=== PATIENT | male | born 1990 | race American Indian/Alaskan Native ===

== ENCOUNTER 2017-08-07 10:44 | Inpatient (IN) | payer MEDICARE ==
[2017-08-07] MEDS ORDERED: NACL 0.9% 1000 ML 1,000 ML IV ONE (11:05)
[2017-08-07 11:15] LABS: Basophils % (Auto) 0.3 % (0.0-1.8); Eosinophils % (Auto) 0.6 % (0.0-4.3); Hemoglobin 16.6 gm/dl (11.8-15.2); Mean Corpuscular HGB Conc 35 % (32-34); Mean Corpuscular Hemoglobin 31 pg (28-32); Mean Corpuscular Volume 90 fl (84-94); Platelet Count 117 K/mm3 (140-440); Red Blood Count 5.36 M/mm3 (3.65-5.03); Red Cell Distribution Width 13.2 % (13.2-15.2)
[2017-08-07 11:30] LABS: Anion Gap 17 mmol/L; BUN/Creatinine Ratio 10; Blood Urea Nitrogen 6 mg/dL (9-20); Calcium 8.9 mg/dL (8.4-10.2); Carbon Dioxide 28 mmol/L (22-30); Chloride 99.2 mmol/L (98-107); Glucose 91 mg/dL (75-100); Potassium 3.7 mmol/L (3.6-5.0); Sodium 140 mmol/L (137-145)
--- NOTE | 2017-08-07 11:30 | XRay Report ---
AP CHEST : 08/07/17 10:44:00 CLINICAL: Hypertension. FINDINGS: Normal heart and pulmonary vessels. The lungs are normally expanded and clear. The bones and soft tissues are unremarkable. IMPRESSION: Normal chest.
[2017-08-07 11:38] LABS: INR 1.07 (0.87-1.13)
[2017-08-07 11:39] LABS: Partial Thromboplastin Time 30.2 Sec. (24.2-36.6)
[2017-08-07] MEDS ORDERED: ROCEPHIN/NS 1 GM/50 ML 1 GM/50 ML BAG IV ONE (11:45)
[2017-08-07 11:50] LABS: Creatine Kinase MB 20.2 ng/mL (0.0-4.0)
[2017-08-07 11:51] LABS: Urine Drugs of Abuse Note Disclamer
[2017-08-07 11:52] LABS: Alanine Aminotransferase 13 units/L (7-56); Albumin 4.1 g/dL (3.9-5); Albumin/Globulin Ratio 1.4 %; Alkaline Phosphatase 57 units/L (35-129); Creatine Kinase 414 units/L (55-170); Lipase 17 units/L (13-60); Total Protein 7.1 g/dL (6.3-8.2)
[2017-08-07 11:56] LABS: Bilirubin,Direct < 0.2 mg/dL (0-0.2)
[2017-08-07 12:03] LABS: Bilirubin,Urine NEG (Negative); Blood,Urine NEG (Negative); Ketones,Urine NEG (Negative); Leukocyte Esterase,Urine NEG (Negative); Mucus,Urine 1+ /HPF; Nitrite,Urine NEG (Negative); Protein,Urine <15 mg/dL mg/dL (Negative)
[2017-08-07] MEDS ORDERED: cefTRIAXone 1 GM in NACL 0.9% 20 ML IV ONE (12:15)
[2017-08-07] MEDS ORDERED: ZOFRAN IV PRN (12:40)
[2017-08-07] MEDS ORDERED: MILK OF MAGNESIA PO PRN (12:40)
[2017-08-07] MEDS ORDERED: TYLENOL PO PRN (12:40)
[2017-08-07] MEDS ORDERED: DULCOLAX PR PRN (12:40)
--- NOTE | 2017-08-07 12:40 | History and Physical Report ---
History of Present Illness Date of examination: 08/07/17 Date of admission: 08/07/17 Chief complaint: Running naked in street History of present illness: Patient brought in by police because he was found wandering around the street naked. Patient cannot provide much of a history.When he initially came he could not tell his name but now he says his name is Linus Bethany. He has altered mental status and cannot tell if he has any psychiatric illness but states he was on Geodon at one time and last took it in May, 2 months ago. He is currently calm. Will admit on 1013 status for further evaluation. Past History Past Medical History: No medical history, other (Unknown) Past Surgical History: No surgical history, Other (Unknown) Social history: single Family history: other (Unknown) Medications and Allergies Allergies Allergy/AdvReac Type Severity Reaction Status Date / Time Unable to Assess Allergy Unverified 08/07/17 10:47 Home Medications Medication Instructions Recorded Confirmed Last Taken Type Unobtainable 08/07/17 08/07/17 Unknown History Review of Systems ROS unobtainable: due to mental status Exam - Physical Exam Narrative exam: GEN APPEARANCE : Not in acute distress HEENT: Normocephalic Atraumatic NECK : supple, no JVD LUNGS: clear to auscultation bilaterally, no rales, no wheeze HEART: S1 and S2 regular, no murmurs, rubs or gallop, ABD: Soft, no tenderness, no distension, normal bowel sounds EXT: No edema, no clubbing, no cyanosis NEURO: Awake,alert,oriented to person, not to place or time., moves all extremities - Constitutional Vitals: Temp Pulse Resp BP Pulse Ox 97.4 F L 90 23 126/94 97 08/07/17 11:17 08/07/17 11:46 08/07/17 11:46 08/07/17 11:46 08/07/17 11:57 Results - Labs CBC & Chem 7: 08/07/17 11:00 08/07/17 11:00 Labs: Abnormal lab results 08/07/17 08/07/17 08/07/17 Range/Units 11:00 11:00 11:07 RBC 5.36 H (3.65-5.03) M/mm3 Hgb 16.6 H (11.8-15.2) gm/dl Hct 48.0 H (35.5-45.6) % MCHC 35 H (32-34) % Plt Count 117 L (140-440) K/mm3 [place] % (Auto) 9.2 H (0.0-7.3) % [place] # 0.9 H (0.0-0.8) K/mm3 Seg Neutrophils % 74.3 H (40.0-70.0) % BUN 6 L (9-20) mg/dL Creatinine 0.6 L (0.8-1.5) mg/dL Lactic Acid (0.7-2.0) mmol/L Ammonia (25-60) umol/L Total Creatine Kinase 414 H (55-170) units/L CK-MB (CK-2) 20.2 H (0.0-4.0) ng/mL CK-MB (CK-2) Rel Index 4.8 H (0-4) 08/07/17 08/07/17 Range/Units 11:07 11:07 RBC (3.65-5.03) M/mm3 Hgb (11.8-15.2) gm/dl Hct (35.5-45.6) % MCHC (32-34) % Plt Count (140-440) K/mm3 [place] % (Auto) (0.0-7.3) % [place] # (0.0-0.8) K/mm3 Seg Neutrophils % (40.0-70.0) % BUN (9-20) mg/dL Creatinine (0.8-1.5) mg/dL Lactic Acid 2.70 H* (0.7-2.0) mmol/L Ammonia 22.0 L (25-60) umol/L Total Creatine Kinase (55-170) units/L CK-MB (CK-2) (0.0-4.0) ng/mL CK-MB (CK-2) Rel Index (0-4) Assessment and Plan Acute encephalopathy, confused, found running naked in street. Admit to medical floor. Possible psychosis, since he states he was on Geodon 2 months ago. Consult Psych. Use 1013 status since he cannot care for himself. Will get CT Head to r/o neurological etiology. Acute psychosis. Psych consulted. haldol prn. 1;1 sitter. Lactic acidosis, may be due to him running. To r/o sepsis. Blood cultures drawn / Start iv antibiotics. May de-escalate if indicated. DVT prophylaxis with Lovenox subcut. Full code status.
--- NOTE | 2017-08-07 12:59 | Emergency Department Report ---
ED General Adult HPI - General Chief complaint: Medical Clearance Stated complaint: AMS/MH Time Seen by Provider: 08/07/17 11:02 Source: EMS Mode of arrival: Stretcher Limitations: Other - History of Present Illness Initial comments: The patient was apprehended by police while running naked. 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 He did not produce any ID. He did not have any specific complaint. He was completely nonverbal when he arrived at this facility. Family later upon the hospitalists evaluation the patient does admit to a previous prescription for Geodon. -: unknown - Related Data Home Medications Medication Instructions Recorded Confirmed Last Taken Unobtainable 08/07/17 08/07/17 Unknown Allergies Allergy/AdvReac Type Severity Reaction Status Date / Time Unable to Assess Allergy Unverified 08/07/17 10:47 ED Review of Systems ROS: Stated complaint: AMS/MH Other details as noted in HPI Comment: Unobtainable due to pts medical conditions ED Past Medical Hx - Past Medical History Hx Psychiatric Treatment: Yes Additional medical history: UNKNOWN - Surgical History Additional Surgical History: UNKNOWN - Social History Smoking Status: Smoker, Current Status Unknown - Medications Home Medications: Home Medications Medication Instructions Recorded Confirmed Last Taken Type Unobtainable 08/07/17 08/07/17 Unknown History ED Physical Exam - General Limitations: Other (patient is completely nonverbal on my exam) General appearance: alert, in no apparent distress - Head Head exam: Present: atraumatic, normocephalic - Eye Eye exam: Present: normal appearance, PERRL, EOMI. Absent: scleral icterus - ENT ENT exam: Present: mucous membranes moist - Neck Neck exam: Present: normal inspection. Absent: tenderness, meningismus - Respiratory Respiratory exam: Present: normal lung sounds bilaterally. Absent: respiratory distress - Cardiovascular Cardiovascular Exam: Present: regular rate, normal rhythm. Absent: systolic murmur, diastolic murmur, rubs, gallop - GI/Abdominal GI/Abdominal exam: Present: soft, normal bowel sounds. Absent: distended, tenderness, guarding, rebound, rigid - Rectal Rectal exam: Present: deferred - Extremities Exam Extremities exam: Present: normal inspection - Back Exam Back exam: Present: normal inspection - Neurological Exam Neurological exam: Present: alert, oriented X3, CN II-XII intact (as testable). Absent: motor sensory deficit - Psychiatric Psychiatric exam: Present: normal mood, flat affect - Skin Skin exam: Present: warm, dry, intact, normal color. Absent: rash ED Course Vital Signs 08/07/17 08/07/17 08/07/17 10:48 11:06 11:16 Temperature 97.9 F Pulse Rate 89 92 H Respiratory 18 19 Rate Blood Pressure 123/84 126/94 O2 Sat by Pulse 95 95 95 Oximetry 08/07/17 08/07/17 08/07/17 11:17 11:30 11:46 Temperature 97.4 F L Pulse Rate 85 90 Respiratory 15 23 Rate Blood Pressure 126/94 126/94 O2 Sat by Pulse 95 93 Oximetry 08/07/17 11:57 Temperature Pulse Rate Respiratory Rate Blood Pressure O2 Sat by Pulse 97 Oximetry - Reevaluation(s) Reevaluation #1: Patient will be admitted to the hospitalist service. He is stable at this time. His temperature was 97 so he was not that significantly hypothermic. His lactic acid was mildly elevated. He was given empiric ceftriaxone. No source infection has yet been found. 08/07/17 12:58 ED Medical Decision Making - Lab Data Result diagrams: 08/07/17 11:00 08/07/17 11:00 Laboratory Results - last 24 hr 08/07/17 08/07/17 08/07/17 11:00 11:00 11:00 WBC 10.0 RBC 5.36 H Hgb 16.6 H Hct 48.0 H MCV 90 MCH 31 MCHC 35 H RDW 13.2 Plt Count 117 L Lymph % (Auto) 15.6 [place] % (Auto) 9.2 H Eos % (Auto) 0.6 Baso % (Auto) 0.3 Lymph # 1.6 [place] # 0.9 H Eos # 0.1 Baso # 0.0 Seg Neutrophils % 74.3 H Seg Neutrophils # 7.4 PT INR APTT Sodium 140 Potassium 3.7 Chloride 99.2 Carbon Dioxide 28 Anion Gap 17 BUN 6 L Creatinine 0.6 L Estimated GFR > 60 BUN/Creatinine Ratio 10 Glucose 91 Lactic Acid Calcium 8.9 Magnesium Total Bilirubin Direct Bilirubin AST ALT Alkaline Phosphatase Ammonia Total Creatine Kinase CK-MB (CK-2) CK-MB (CK-2) Rel Index Troponin T NT-Pro-B Natriuret Pep Total Protein Albumin Albumin/Globulin Ratio Lipase Urine Color Urine Turbidity Urine pH Ur Specific [place] Urine Protein Urine Glucose (UA) Urine Ketones Urine Blood Urine Nitrite Urine Bilirubin Urine Urobilinogen Ur Leukocyte Esterase Urine WBC (Auto) Urine RBC (Auto) Hyaline Casts Urine Mucus Urine Opiates Screen Urine Methadone Screen Ur Barbiturates Screen Ur Phencyclidine Scrn Ur Amphetamines Screen U Benzodiazepines Scrn Urine Cocaine Screen U Marijuana (THC) Screen Drugs of Abuse Note Plasma/Serum Alcohol < 0.01 08/07/17 08/07/17 08/07/17 11:07 11:07 11:07 WBC RBC Hgb Hct MCV MCH MCHC RDW Plt Count Lymph % (Auto) [place] % (Auto) Eos % (Auto) Baso % (Auto) Lymph # [place] # Eos # Baso # Seg Neutrophils % Seg Neutrophils # PT 14.4 INR 1.07 APTT 30.2 Sodium Potassium Chloride Carbon Dioxide Anion Gap BUN Creatinine Estimated GFR BUN/Creatinine Ratio Glucose Lactic Acid 2.70 H* Calcium Magnesium 1.70 Total Bilirubin 0.80 Direct Bilirubin < 0.2 AST 25 ALT 13 Alkaline Phosphatase 57 Ammonia Total Creatine Kinase 414 H CK-MB (CK-2) 20.2 H CK-MB (CK-2) Rel Index 4.8 H Troponin T < 0.010 NT-Pro-B Natriuret Pep 80.40 Total Protein 7.1 Albumin 4.1 Albumin/Globulin Ratio 1.4 Lipase 17 Urine Color Urine Turbidity Urine pH Ur Specific [place] Urine Protein Urine Glucose (UA) Urine Ketones Urine Blood Urine Nitrite Urine Bilirubin Urine Urobilinogen Ur Leukocyte Esterase Urine WBC (Auto) Urine RBC (Auto) Hyaline Casts Urine Mucus Urine Opiates Screen Urine Methadone Screen Ur Barbiturates Screen Ur Phencyclidine Scrn Ur Amphetamines Screen U Benzodiazepines Scrn Urine Cocaine Screen U Marijuana (THC) Screen Drugs of Abuse Note Plasma/Serum Alcohol 08/07/17 08/07/17 08/07/17 11:07 Unknown Unknown WBC RBC Hgb Hct MCV MCH MCHC RDW Plt Count Lymph % (Auto) [place] % (Auto) Eos % (Auto) Baso % (Auto) Lymph # [place] # Eos # Baso # Seg Neutrophils % Seg Neutrophils # PT INR APTT Sodium Potassium Chloride Carbon Dioxide Anion Gap BUN Creatinine Estimated GFR BUN/Creatinine Ratio Glucose Lactic Acid Calcium Magnesium Total Bilirubin Direct Bilirubin AST ALT Alkaline Phosphatase Ammonia 22.0 L Total Creatine Kinase CK-MB (CK-2) CK-MB (CK-2) Rel Index Troponin T NT-Pro-B Natriuret Pep Total Protein Albumin Albumin/Globulin Ratio Lipase Urine Color Yellow Urine Turbidity Clear Urine pH 6.0 Ur Specific [place] 1.025 Urine Protein <15 mg/dl Urine Glucose (UA) 50 Urine Ketones Neg Urine Blood Neg Urine Nitrite Neg Urine Bilirubin Neg Urine Urobilinogen 2.0 Ur Leukocyte Esterase Neg Urine WBC (Auto) 1.0 Urine RBC (Auto) 1.0 Hyaline Casts 1 Urine Mucus 1+ Urine Opiates Screen Presumptive negative Urine Methadone Screen Presumptive negative Ur Barbiturates Screen Presumptive negative Ur Phencyclidine Scrn Presumptive negative Ur Amphetamines Screen Presumptive negative U Benzodiazepines Scrn Presumptive negative Urine Cocaine Screen Presumptive negative U Marijuana (THC) Screen Presumptive negative Drugs of Abuse Note Disclamer Plasma/Serum Alcohol - EKG Data -: EKG Interpreted by Me EKG shows normal: sinus rhythm, axis, intervals, QRS complexes, ST-T waves Rate: normal - EKG Data Interpretation: no acute changes Critical care attestation.: If time is entered above; I have spent that time in minutes in the direct care of this critically ill patient, excluding procedure time. ED Disposition Clinical Impression: Elevated lactic acid level, Acute psychosis Altered mental status Qualifiers: Altered mental status type: delirium Qualified Code(s): R41.0 - Disorientation , unspecified Rhabdomyolysis Qualifiers: Rhabdomyolysis type: traumatic Encounter type: initial encounter Qualified Code (s): T79.6XXA - Traumatic ischemia of muscle, initial encounter Disposition: DC09 OP ADMIT IP TO THIS HOSP Is pt being admited?: No Does the pt Need Aspirin: Yes Condition: Stable Time of Disposition: 13:02
--- NOTE | 2017-08-07 13:15 | Cat Scan Report ---
CT HEAD WITHOUT CONTRAST: HISTORY: Altered mental status. Serial contiguous axial images were obtained through the cranium. Intravenous contrast material was not administered. The ventricles are normal in size and appearance. There is no mass effect or midline shift. No areas of abnormally increased or decreased attenuation are seen. No mass lesion is seen. Mild mucosal thickening is suspected to all paranasal sinuses. The mastoid air cells are well-aerated. IMPRESSION: Cranial CT scan within normal limits. Sinus disease.
[2017-08-07] MEDS ORDERED: D5LR 1,000 ML IV ONE (14:47)
[2017-08-07] MEDS ORDERED: VANCOMYCIN VIAL IV ONE (15:27)
[2017-08-07] MEDS ORDERED: VANCOMYCIN PHARMACY TO DOSE IV SCH (16:00)
[2017-08-07] MEDS: D5/0.45NS 1,000 ML IV SCH (17:38)
[2017-08-07] MEDS: ZOSYN/NS 4.5GM/100ML 4.5 GM/100 ML VIAL IV SCH (18:31)
[2017-08-07] MEDS: VANCOMYCIN/NS 1 GM/250 ML 1 GM/250 ML BAG IV SCH (18:32)
[2017-08-08] MEDS: VANCOMYCIN/NS 1 GM/250 ML 1 GM/250 ML BAG IV SCH ×3 (03:03→18:18)
[2017-08-08 05:50] LABS: Hematocrit 46.2 % (35.5-45.6); Hemoglobin 15.9 gm/dl (11.8-15.2); Mean Corpuscular HGB Conc 34 % (32-34); Mean Corpuscular Hemoglobin 31 pg (28-32); Mean Corpuscular Volume 90 fl (84-94); Platelet Count 100 K/mm3 (140-440); Red Blood Count 5.15 M/mm3 (3.65-5.03); Red Cell Distribution Width 13.1 % (13.2-15.2); White Blood Count 5.5 K/mm3 (4.5-11.0)
[2017-08-08 06:07] LABS: Alanine Aminotransferase 15 units/L (7-56); Albumin 3.8 g/dL (3.9-5); Albumin/Globulin Ratio 1.4 %; Alkaline Phosphatase 58 units/L (35-129); Anion Gap 14 mmol/L; BUN/Creatinine Ratio 12; Blood Urea Nitrogen 6 mg/dL (9-20); Calcium 8.5 mg/dL (8.4-10.2); Carbon Dioxide 28 mmol/L (22-30); Chloride 102.6 mmol/L (98-107); Glucose 96 mg/dL (75-100); Potassium 3.7 mmol/L (3.6-5.0); Sodium 141 mmol/L (137-145); Total Protein 6.6 g/dL (6.3-8.2)
[2017-08-08] MEDS: ZOSYN/NS 4.5GM/100ML 4.5 GM/100 ML VIAL IV SCH ×3 (06:21→18:20)
--- NOTE | 2017-08-08 09:54 | Progress Note ---
Assessment and Plan Assessment and plan: Acute encephalopathy, confused, found running naked in street. Admitted to medical floor. Possible psychosis, since he states he was on Geodon 2 months ago. Consulted Psych. Use 1013 status since he cannot care for himself. CT head unremarkable. Acute psychosis. Psych consulted. haldol prn. 1;1 sitter. Lactic acidosis, may be due to him running. To r/o sepsis. Blood cultures drawn. / Started iv is vancomycin. Blood cultures negative to date. May discontinue if no growth in 48 hrs. DVT prophylaxis with Lovenox subcut. Full code status. History Interval history: less confused, Still does not provide much history Hospitalist Physical - Physical exam Narrative exam: GEN APPEARANCE : Not in acute distress, HEENT: Normocephalic Atraumatic NECK : supple, no JVD LUNGS: clear to auscultation bilaterally, no rales, no wheeze HEART: S1 and S2 regular, no murmurs, rubs or gallop, ABD: Soft, no tenderness, no distension, normal bowel sounds EXT: No edema, no clubbing, no cyanosis NEURO: Awake,alert,oriented to person, not to place or time., moves all extremities - Constitutional Vitals: Temp Pulse Resp BP Pulse Ox 97.8 F 82 18 138/90 100 08/08/17 08:40 08/08/17 08:40 08/08/17 08:40 08/08/17 08:40 08/08/17 08:40 Results - Labs CBC & Chem 7: 08/08/17 05:24 08/08/17 05:24 Labs: Laboratory Last Values WBC 5.5 K/mm3 (4.5-11.0) 08/08/17 05:24 RBC 5.15 M/mm3 (3.65-5.03) H 08/08/17 05:24 Hgb 15.9 gm/dl (11.8-15.2) H 08/08/17 05:24 Hct 46.2 % (35.5-45.6) H 08/08/17 05:24 MCV 90 fl (84-94) 08/08/17 05:24 MCH 31 pg (28-32) 08/08/17 05:24 MCHC 34 % (32-34) 08/08/17 05:24 RDW 13.1 % (13.2-15.2) L 08/08/17 05:24 Plt Count 100 K/mm3 (140-440) L 08/08/17 05:24 Lymph % (Auto) 15.6 % (13.4-35.0) 08/07/17 11:00 [place] % (Auto) 9.2 % (0.0-7.3) H 08/07/17 11:00 Eos % (Auto) 0.6 % (0.0-4.3) 08/07/17 11:00 Baso % (Auto) 0.3 % (0.0-1.8) 08/07/17 11:00 Lymph # 1.6 K/mm3 (1.2-5.4) 08/07/17 11:00 [place] # 0.9 K/mm3 (0.0-0.8) H 08/07/17 11:00 Eos # 0.1 K/mm3 (0.0-0.4) 08/07/17 11:00 Baso # 0.0 K/mm3 (0.0-0.1) 08/07/17 11:00 Seg Neutrophils % 74.3 % (40.0-70.0) H 08/07/17 11:00 Seg Neutrophils # 7.4 K/mm3 (1.8-7.7) 08/07/17 11:00 PT 14.4 Sec. (12.2-14.9) 08/07/17 11:07 INR 1.07 (0.87-1.13) 08/07/17 11:07 APTT 30.2 Sec. (24.2-36.6) 08/07/17 11:07 Sodium 141 mmol/L (137-145) 08/08/17 05:24 Potassium 3.7 mmol/L (3.6-5.0) 08/08/17 05:24 Chloride 102.6 mmol/L (98-107) 08/08/17 05:24 Carbon Dioxide 28 mmol/L (22-30) 08/08/17 05:24 Anion Gap 14 mmol/L 08/08/17 05:24 BUN 6 mg/dL (9-20) L 08/08/17 05:24 Creatinine 0.5 mg/dL (0.8-1.5) L 08/08/17 05:24 Estimated GFR > 60 ml/min 08/08/17 05:24 BUN/Creatinine Ratio 12 % 08/08/17 05:24 Glucose 96 mg/dL (75-100) 08/08/17 05:24 Lactic Acid 2.30 mmol/L (0.7-2.0) H* 08/07/17 17:50 Calcium 8.5 mg/dL (8.4-10.2) 08/08/17 05:24 Magnesium 1.70 mg/dL (1.7-2.3) 08/07/17 11:07 Total Bilirubin 0.60 mg/dL (0.1-1.2) 08/08/17 05:24 Direct Bilirubin < 0.2 mg/dL (0-0.2) 08/07/17 11:07 AST 23 units/L (5-40) 08/08/17 05:24 ALT 15 units/L (7-56) 08/08/17 05:24 Alkaline Phosphatase 58 units/L (35-129) 08/08/17 05:24 Ammonia 22.0 umol/L (25-60) L 08/07/17 11:07 Total Creatine Kinase 414 units/L (55-170) H 08/07/17 11:07 CK-MB (CK-2) 20.2 ng/mL (0.0-4.0) H 08/07/17 11:07 CK-MB (CK-2) Rel Index 4.8 (0-4) H 08/07/17 11:07 Troponin T < 0.010 ng/mL (0.00-0.029) 08/07/17 11:07 NT-Pro-B Natriuret Pep 80.40 pg/mL (0-450) 08/07/17 11:07 Total Protein 6.6 g/dL (6.3-8.2) 08/08/17 05:24 Albumin 3.8 g/dL (3.9-5) L 08/08/17 05:24 Albumin/Globulin Ratio 1.4 % 08/08/17 05:24 Lipase 17 units/L (13-60) 08/07/17 11:07 Urine Color Yellow (Yellow) 08/07/17 Unknown Urine Turbidity Clear (Clear) 08/07/17 Unknown Urine pH 6.0 (5.0-7.0) 08/07/17 Unknown Ur Specific [place] 1.025 (1.003-1.030) 08/07/17 Unknown Urine Protein <15 mg/dl mg/dL (Negative) 08/07/17 Unknown Urine Glucose (UA) 50 mg/dL (Negative) 08/07/17 Unknown Urine Ketones Neg mg/dL (Negative) 08/07/17 Unknown Urine Blood Neg (Negative) 08/07/17 Unknown Urine Nitrite Neg (Negative) 08/07/17 Unknown Urine Bilirubin Neg (Negative) 08/07/17 Unknown Urine Urobilinogen 2.0 mg/dL (<2.0) 08/07/17 Unknown Ur Leukocyte Esterase Neg (Negative) 08/07/17 Unknown Urine WBC (Auto) 1.0 /HPF (0.0-6.0) 08/07/17 Unknown Urine RBC (Auto) 1.0 /HPF (0.0-6.0) 08/07/17 Unknown Hyaline Casts 1 /LPF 08/07/17 Unknown Urine Mucus 1+ /HPF 08/07/17 Unknown Urine Opiates Screen Presumptive negative 08/07/17 Unknown Urine Methadone Screen Presumptive negative 08/07/17 Unknown Ur Barbiturates Screen Presumptive negative 08/07/17 Unknown Ur Phencyclidine Scrn Presumptive negative 08/07/17 Unknown Ur Amphetamines Screen Presumptive negative 08/07/17 Unknown U Benzodiazepines Scrn Presumptive negative 08/07/17 Unknown Urine Cocaine Screen Presumptive negative 08/07/17 Unknown U Marijuana (THC) Screen Presumptive negative 08/07/17 Unknown Drugs of Abuse Note Disclamer 08/07/17 Unknown Plasma/Serum Alcohol < 0.01 gm% (0-0.07) 08/07/17 11:00
[2017-08-08] MEDS: D5/0.45NS 1,000 ML IV SCH (11:31)
[2017-08-08] MEDS: LOVENOX SUB-Q SCH (11:32)
[2017-08-09] MEDS: ZOSYN/NS 4.5GM/100ML 4.5 GM/100 ML VIAL IV SCH ×3 (01:14→17:16)
[2017-08-09] MEDS: VANCOMYCIN/NS 1 GM/250 ML 1 GM/250 ML BAG IV SCH ×3 (02:07→17:17)
--- NOTE | 2017-08-09 09:15 | Progress Note ---
Assessment and Plan Assessment and plan: Acute encephalopathy, confused, found running naked in street. Admitted to medical floor. Possible psychosis, since he states he was on Geodon 2 months ago. Psych following. Use 1013 status since he cannot care for himself. CT head unremarkable. Acute psychosis. Psych following. Continue 1:1 sitter. Lactic acidosis, may be due to him running. To r/o sepsis. Blood cultures drawn. Started iv is vancomycin. Blood cultures negative to date. May discontinue if no growth in 48 hrs. DVT prophylaxis with Lovenox subcut. Full code status. History Interval history: less confused, Still does not provide much history Hospitalist Physical - Physical exam Narrative exam: GEN APPEARANCE : Not in acute distress, HEENT: Normocephalic Atraumatic NECK : supple, no JVD LUNGS: clear to auscultation bilaterally, no rales, no wheeze HEART: S1 and S2 regular, no murmurs, rubs or gallop, ABD: Soft, no tenderness, no distension, normal bowel sounds EXT: No edema, no clubbing, no cyanosis NEURO: Awake,alert,oriented to person, not to place or time., moves all extremities, only says few words - Constitutional Vitals: Temp Pulse Resp BP Pulse Ox 98.4 F 58 L 15 122/86 100 08/09/17 08:12 08/09/17 08:12 08/09/17 08:12 08/09/17 08:12 08/09/17 08:12 Results - Labs CBC & Chem 7: 08/08/17 05:24 08/08/17 05:24 Labs: Laboratory Last Values WBC 5.5 K/mm3 (4.5-11.0) 08/08/17 05:24 RBC 5.15 M/mm3 (3.65-5.03) H 08/08/17 05:24 Hgb 15.9 gm/dl (11.8-15.2) H 08/08/17 05:24 Hct 46.2 % (35.5-45.6) H 08/08/17 05:24 MCV 90 fl (84-94) 08/08/17 05:24 MCH 31 pg (28-32) 08/08/17 05:24 MCHC 34 % (32-34) 08/08/17 05:24 RDW 13.1 % (13.2-15.2) L 08/08/17 05:24 Plt Count 100 K/mm3 (140-440) L 08/08/17 05:24 Lymph % (Auto) 15.6 % (13.4-35.0) 08/07/17 11:00 [place] % (Auto) 9.2 % (0.0-7.3) H 08/07/17 11:00 Eos % (Auto) 0.6 % (0.0-4.3) 08/07/17 11:00 Baso % (Auto) 0.3 % (0.0-1.8) 08/07/17 11:00 Lymph # 1.6 K/mm3 (1.2-5.4) 08/07/17 11:00 [place] # 0.9 K/mm3 (0.0-0.8) H 08/07/17 11:00 Eos # 0.1 K/mm3 (0.0-0.4) 08/07/17 11:00 Baso # 0.0 K/mm3 (0.0-0.1) 08/07/17 11:00 Seg Neutrophils % 74.3 % (40.0-70.0) H 08/07/17 11:00 Seg Neutrophils # 7.4 K/mm3 (1.8-7.7) 08/07/17 11:00 PT 14.4 Sec. (12.2-14.9) 08/07/17 11:07 INR 1.07 (0.87-1.13) 08/07/17 11:07 APTT 30.2 Sec. (24.2-36.6) 08/07/17 11:07 Sodium 141 mmol/L (137-145) 08/08/17 05:24 Potassium 3.7 mmol/L (3.6-5.0) 08/08/17 05:24 Chloride 102.6 mmol/L (98-107) 08/08/17 05:24 Carbon Dioxide 28 mmol/L (22-30) 08/08/17 05:24 Anion Gap 14 mmol/L 08/08/17 05:24 BUN 6 mg/dL (9-20) L 08/08/17 05:24 Creatinine 0.5 mg/dL (0.8-1.5) L 08/08/17 05:24 Estimated GFR > 60 ml/min 08/08/17 05:24 BUN/Creatinine Ratio 12 % 08/08/17 05:24 Glucose 96 mg/dL (75-100) 08/08/17 05:24 Lactic Acid 2.30 mmol/L (0.7-2.0) H* 08/07/17 17:50 Calcium 8.5 mg/dL (8.4-10.2) 08/08/17 05:24 Magnesium 1.70 mg/dL (1.7-2.3) 08/07/17 11:07 Total Bilirubin 0.60 mg/dL (0.1-1.2) 08/08/17 05:24 Direct Bilirubin < 0.2 mg/dL (0-0.2) 08/07/17 11:07 AST 23 units/L (5-40) 08/08/17 05:24 ALT 15 units/L (7-56) 08/08/17 05:24 Alkaline Phosphatase 58 units/L (35-129) 08/08/17 05:24 Ammonia 22.0 umol/L (25-60) L 08/07/17 11:07 Total Creatine Kinase 414 units/L (55-170) H 08/07/17 11:07 CK-MB (CK-2) 20.2 ng/mL (0.0-4.0) H 08/07/17 11:07 CK-MB (CK-2) Rel Index 4.8 (0-4) H 08/07/17 11:07 Troponin T < 0.010 ng/mL (0.00-0.029) 08/07/17 11:07 NT-Pro-B Natriuret Pep 80.40 pg/mL (0-450) 08/07/17 11:07 Total Protein 6.6 g/dL (6.3-8.2) 08/08/17 05:24 Albumin 3.8 g/dL (3.9-5) L 08/08/17 05:24 Albumin/Globulin Ratio 1.4 % 08/08/17 05:24 Lipase 17 units/L (13-60) 08/07/17 11:07 Urine Color Yellow (Yellow) 08/07/17 Unknown Urine Turbidity Clear (Clear) 08/07/17 Unknown Urine pH 6.0 (5.0-7.0) 08/07/17 Unknown Ur Specific [place] 1.025 (1.003-1.030) 08/07/17 Unknown Urine Protein <15 mg/dl mg/dL (Negative) 08/07/17 Unknown Urine Glucose (UA) 50 mg/dL (Negative) 08/07/17 Unknown Urine Ketones Neg mg/dL (Negative) 08/07/17 Unknown Urine Blood Neg (Negative) 08/07/17 Unknown Urine Nitrite Neg (Negative) 08/07/17 Unknown Urine Bilirubin Neg (Negative) 08/07/17 Unknown Urine Urobilinogen 2.0 mg/dL (<2.0) 08/07/17 Unknown Ur Leukocyte Esterase Neg (Negative) 08/07/17 Unknown Urine WBC (Auto) 1.0 /HPF (0.0-6.0) 08/07/17 Unknown Urine RBC (Auto) 1.0 /HPF (0.0-6.0) 08/07/17 Unknown Hyaline Casts 1 /LPF 08/07/17 Unknown Urine Mucus 1+ /HPF 08/07/17 Unknown Urine Opiates Screen Presumptive negative 08/07/17 Unknown Urine Methadone Screen Presumptive negative 08/07/17 Unknown Ur Barbiturates Screen Presumptive negative 08/07/17 Unknown Ur Phencyclidine Scrn Presumptive negative 08/07/17 Unknown Ur Amphetamines Screen Presumptive negative 08/07/17 Unknown U Benzodiazepines Scrn Presumptive negative 08/07/17 Unknown Urine Cocaine Screen Presumptive negative 08/07/17 Unknown U Marijuana (THC) Screen Presumptive negative 08/07/17 Unknown Drugs of Abuse Note Disclamer 08/07/17 Unknown Plasma/Serum Alcohol < 0.01 gm% (0-0.07) 08/07/17 11:00
[2017-08-09] MEDS: HALDOL IM PRN ×2 (11:02→23:37)
[2017-08-09] MEDS: LOVENOX SUB-Q SCH (11:04)
[2017-08-10] MEDS: ZOSYN/NS 4.5GM/100ML 4.5 GM/100 ML VIAL IV SCH ×3 (02:04→17:29)
[2017-08-10] MEDS: VANCOMYCIN/NS 1 GM/250 ML 1 GM/250 ML BAG IV SCH ×3 (02:09→18:24)
[2017-08-10] MEDS: D5/0.45NS 1,000 ML IV SCH ×2 (02:49→18:40)
[2017-08-10] MEDS: HALDOL IM PRN (08:25)
--- NOTE | 2017-08-10 09:01 | Progress Note ---
Assessment and Plan Assessment and plan: Acute encephalopathy, confused, found running naked in street. Admitted to medical floor. Possible psychosis, since he states he was on Geodon 2 months ago. Psych following. Use 1013 status since he cannot care for himself. CT head unremarkable. Acute psychosis. Psych following. Continue 1:1 sitter. Lactic acidosis, may be due to him running. To r/o sepsis. Blood cultures drawn. Started iv is vancomycin. Blood cultures negative to date. May discontinue if blood cultures remain negative. DVT prophylaxis with Lovenox subcut. Full code status. History Interval history: less confused, Still does not talk much, does not provide much history Hospitalist Physical - Physical exam Narrative exam: GEN APPEARANCE : Not in acute distress, HEENT: Normocephalic Atraumatic NECK : supple, no JVD LUNGS: clear to auscultation bilaterally, no rales, no wheeze HEART: S1 and S2 regular, no murmurs, rubs or gallop, ABD: Soft, no tenderness, no distension, normal bowel sounds EXT: No edema, no clubbing, no cyanosis NEURO: Awake,alert,oriented to person,and place, not to time., moves all extremities, only says few words - Constitutional Vitals: Temp Pulse Resp BP Pulse Ox 97.4 F L 75 20 139/94 96 08/10/17 04:25 08/10/17 04:25 08/10/17 04:25 08/10/17 04:25 08/10/17 04:25 Results - Labs CBC & Chem 7: 08/08/17 05:24 08/08/17 05:24 Labs: Laboratory Last Values WBC 5.5 K/mm3 (4.5-11.0) 08/08/17 05:24 RBC 5.15 M/mm3 (3.65-5.03) H 08/08/17 05:24 Hgb 15.9 gm/dl (11.8-15.2) H 08/08/17 05:24 Hct 46.2 % (35.5-45.6) H 08/08/17 05:24 MCV 90 fl (84-94) 08/08/17 05:24 MCH 31 pg (28-32) 08/08/17 05:24 MCHC 34 % (32-34) 08/08/17 05:24 RDW 13.1 % (13.2-15.2) L 08/08/17 05:24 Plt Count 100 K/mm3 (140-440) L 08/08/17 05:24 Lymph % (Auto) 15.6 % (13.4-35.0) 08/07/17 11:00 [place] % (Auto) 9.2 % (0.0-7.3) H 08/07/17 11:00 Eos % (Auto) 0.6 % (0.0-4.3) 08/07/17 11:00 Baso % (Auto) 0.3 % (0.0-1.8) 08/07/17 11:00 Lymph # 1.6 K/mm3 (1.2-5.4) 08/07/17 11:00 [place] # 0.9 K/mm3 (0.0-0.8) H 08/07/17 11:00 Eos # 0.1 K/mm3 (0.0-0.4) 08/07/17 11:00 Baso # 0.0 K/mm3 (0.0-0.1) 08/07/17 11:00 Seg Neutrophils % 74.3 % (40.0-70.0) H 08/07/17 11:00 Seg Neutrophils # 7.4 K/mm3 (1.8-7.7) 08/07/17 11:00 PT 14.4 Sec. (12.2-14.9) 08/07/17 11:07 INR 1.07 (0.87-1.13) 08/07/17 11:07 APTT 30.2 Sec. (24.2-36.6) 08/07/17 11:07 Sodium 141 mmol/L (137-145) 08/08/17 05:24 Potassium 3.7 mmol/L (3.6-5.0) 08/08/17 05:24 Chloride 102.6 mmol/L (98-107) 08/08/17 05:24 Carbon Dioxide 28 mmol/L (22-30) 08/08/17 05:24 Anion Gap 14 mmol/L 08/08/17 05:24 BUN 6 mg/dL (9-20) L 08/08/17 05:24 Creatinine 0.5 mg/dL (0.8-1.5) L 08/08/17 05:24 Estimated GFR > 60 ml/min 08/08/17 05:24 BUN/Creatinine Ratio 12 % 08/08/17 05:24 Glucose 96 mg/dL (75-100) 08/08/17 05:24 Lactic Acid 2.30 mmol/L (0.7-2.0) H* 08/07/17 17:50 Calcium 8.5 mg/dL (8.4-10.2) 08/08/17 05:24 Magnesium 1.70 mg/dL (1.7-2.3) 08/07/17 11:07 Total Bilirubin 0.60 mg/dL (0.1-1.2) 08/08/17 05:24 Direct Bilirubin < 0.2 mg/dL (0-0.2) 08/07/17 11:07 AST 23 units/L (5-40) 08/08/17 05:24 ALT 15 units/L (7-56) 08/08/17 05:24 Alkaline Phosphatase 58 units/L (35-129) 08/08/17 05:24 Ammonia 22.0 umol/L (25-60) L 08/07/17 11:07 Total Creatine Kinase 414 units/L (55-170) H 08/07/17 11:07 CK-MB (CK-2) 20.2 ng/mL (0.0-4.0) H 08/07/17 11:07 CK-MB (CK-2) Rel Index 4.8 (0-4) H 08/07/17 11:07 Troponin T < 0.010 ng/mL (0.00-0.029) 08/07/17 11:07 NT-Pro-B Natriuret Pep 80.40 pg/mL (0-450) 08/07/17 11:07 Total Protein 6.6 g/dL (6.3-8.2) 08/08/17 05:24 Albumin 3.8 g/dL (3.9-5) L 08/08/17 05:24 Albumin/Globulin Ratio 1.4 % 08/08/17 05:24 Lipase 17 units/L (13-60) 08/07/17 11:07 Urine Color Yellow (Yellow) 08/07/17 Unknown Urine Turbidity Clear (Clear) 08/07/17 Unknown Urine pH 6.0 (5.0-7.0) 08/07/17 Unknown Ur Specific [place] 1.025 (1.003-1.030) 08/07/17 Unknown Urine Protein <15 mg/dl mg/dL (Negative) 08/07/17 Unknown Urine Glucose (UA) 50 mg/dL (Negative) 08/07/17 Unknown Urine Ketones Neg mg/dL (Negative) 08/07/17 Unknown Urine Blood Neg (Negative) 08/07/17 Unknown Urine Nitrite Neg (Negative) 08/07/17 Unknown Urine Bilirubin Neg (Negative) 08/07/17 Unknown Urine Urobilinogen 2.0 mg/dL (<2.0) 08/07/17 Unknown Ur Leukocyte Esterase Neg (Negative) 08/07/17 Unknown Urine WBC (Auto) 1.0 /HPF (0.0-6.0) 08/07/17 Unknown Urine RBC (Auto) 1.0 /HPF (0.0-6.0) 08/07/17 Unknown Hyaline Casts 1 /LPF 08/07/17 Unknown Urine Mucus 1+ /HPF 08/07/17 Unknown Urine Opiates Screen Presumptive negative 08/07/17 Unknown Urine Methadone Screen Presumptive negative 08/07/17 Unknown Ur Barbiturates Screen Presumptive negative 08/07/17 Unknown Ur Phencyclidine Scrn Presumptive negative 08/07/17 Unknown Ur Amphetamines Screen Presumptive negative 08/07/17 Unknown U Benzodiazepines Scrn Presumptive negative 08/07/17 Unknown Urine Cocaine Screen Presumptive negative 08/07/17 Unknown U Marijuana (THC) Screen Presumptive negative 08/07/17 Unknown Drugs of Abuse Note Disclamer 08/07/17 Unknown Plasma/Serum Alcohol < 0.01 gm% (0-0.07) 08/07/17 11:00
[2017-08-10] MEDS: LOVENOX SUB-Q SCH (09:44)
--- NOTE | 2017-08-10 16:14 | Consultation ---
History of Present Illness - Reason for Consult Consult date: 08/10/17 Reason for consult: psychiatric consult - Chief Complaint Chief complaint: Running naked in street - History of Present Psychiatric Illness 26 year old AA male seen for psychiatric evaluation on the medical floor. He was brought to the hospital after being found running naked in the street. A 1013 was signed by the ER provider for concerns he cannot care for himself. He has a history of schizophrenia and last took geodon 2 months ago. Limited information was obtained from the patient. He is in restraints. He was able to state his name, specific location, and year but not month. He mumbled mostly during the interview. He was able to say he is homeless and was told he has a history of schizophrenia. He disagreed with the diagnosis. He repeatedly said "I 'm trying to figure something... trying to make it work." He did not confirm nor deny suicidal or homicidal ideation. Unable to determine if he is experiencing hallucinations. Medications and Allergies Allergies Allergy/AdvReac Type Severity Reaction Status Date / Time Unable to Assess Allergy Unverified 08/07/17 10:47 Home Medications Medication Instructions Recorded Confirmed Last Taken Type Unobtainable 08/07/17 08/07/17 Unknown History Active Meds: Active Medications Acetaminophen (Tylenol) 650 mg PO Q4H PRN PRN Reason: Pain MILD(1-3)/Fever >100.5/MAGALLANES Bisacodyl (Dulcolax) 10 mg IN QDAY PRN PRN Reason: Constipation unrelieved by MOM Enoxaparin Sodium (Lovenox) 40 mg SUB-Q QDAY ES Last Admin: 08/10/17 09:44 Dose: 40 mg Haloperidol Lactate (Haldol) 5 mg IM Q6H PRN PRN Reason: Agitation Last Admin: 08/10/17 08:25 Dose: 5 mg Dextrose/Sodium Chloride (D5/0.45ns) 1,000 mls @ 100 mls/hr IV DIRECT ES Last Admin: 08/10/17 02:49 Dose: 100 mls/hr Piperacillin Sod/Tazobactam Sod (Zosyn/Ns 4.5gm/100ml) 4.5 gm in 100 mls @ 200 mls/hr IV Q8H ES PRN Reason: Protocol Last Admin: 08/10/17 09:44 Dose: 100 mls/hr Vancomycin HCl (Vancomycin/Ns 1 Gm/250 Ml) 1 gm in 250 mls @ 125 mls/hr IV Q8H [facility] Last Admin: 08/10/17 10:56 Dose: 125 mls/hr Magnesium Hydroxide (Milk Of Magnesia) 30 ml PO Q4H PRN PRN Reason: Constipation Ondansetron HCl (Zofran) 4 mg IV Q6H PRN PRN Reason: nausea or vomiting Vancomycin HCl (Vancomycin Pharmacy To Dose) 1 each IV PKCONSULT ES PRN Reason: Protocol Past psychiatric history - Past Medical History Past Medical History: other (unk) - past Psychiatric treatment and history Psych: Schizophrenia - Social History Social history: other (homeless and says he does not have family) Mental Status Exam - Vital signs Last Vital Signs Temp 99.1 F 08/10/17 13:37 Pulse 98 H 08/10/17 13:37 Resp 18 08/10/17 13:37 BP 134/89 08/10/17 13:37 Pulse Ox 93 08/10/17 13:37 - Exam Orientation: place, person Affect: agitated Mood: other (unable to obtain) Thought content: other (did not confirm nor deny SI/HI) Thought Process: Disorganized Perceptions: other (unk, mumbling to himself) Speech: minimal response Concentration: other (unable to obtain) Motor activity: restless, other (in restraints) Level of consciousness: confused Memory: Recent Impaired Interaction: other (minimally cooperative) Results Result Diagrams: 08/08/17 05:24 08/08/17 05:24 All other labs normal. Assessment and Plan Assessment and plan: Impression:bizarre behavior. Acute encephalopathy schizophrenia by history He denies having anyone to call for collateral. Recommendation: Continue 1013 and current treatment. - continue medical management to treat any non psychiatric conditions which may contribute to encephalopathy - Please attempt to place patient with 1:1 sitter to verbally redirect instead of using restraints if at all possible - Frequently reorient patient and involve her in their care (simple explanations of procedures, tests, medications). - Lights on and shades open during daytime hours. - Write date and goals of care in a visible place. - Try to avoid unnecessary interruptions to sleep during nighttime hours. - Obtain glasses, hearing aids from home if patient uses these at baseline. - Avoid medications that may exacerbate delirium (especially narcotics, benzodiazepines, barbiturates, ambien, lunesta, and medications with excessive anticholinergic properties)
[2017-08-11] MEDS: ZOSYN/NS 4.5GM/100ML 4.5 GM/100 ML VIAL IV SCH (00:01)
[2017-08-11] MEDS: VANCOMYCIN/NS 1 GM/250 ML 1 GM/250 ML BAG IV SCH (02:27)
[2017-08-11] MEDS: D5/0.45NS 1,000 ML IV SCH ×2 (05:30→19:43)
[2017-08-11] MEDS: LOVENOX SUB-Q SCH (10:02)
--- NOTE | 2017-08-11 10:27 | Progress Note ---
Assessment and Plan Assessment and plan: Acute encephalopathy, confused, found running naked in street. Admitted to medical floor. Symptoms due to psychosis. He states he was on Geodon 2 months ago. Psych following. Cntinue [address] head unremarkable. Acute psychosis. Psych following. Continue 1:1 sitter. Lactic acidosis, may be due to him running. Sepsis ruled out. Blood cultures negative, no fever, no leukocytosis. Will d/c Zosyn and vanco. DVT prophylaxis with Lovenox subcut. Full code status. Medically stable for discharge to Psych facility History Interval history: less confused, Still does not talk much, does not provide much history no fever Hospitalist Physical - Physical exam Narrative exam: GEN APPEARANCE : Not in acute distress, HEENT: Normocephalic Atraumatic NECK : supple, no JVD LUNGS: clear to auscultation bilaterally, no rales, no wheeze HEART: S1 and S2 regular, no murmurs, rubs or gallop, ABD: Soft, no tenderness, no distension, normal bowel sounds EXT: No edema, no clubbing, no cyanosis NEURO: Awake,alert,oriented to person,and place, not to time., moves all extremities, only says few words - Constitutional Vitals: Temp Pulse Resp BP Pulse Ox 98.2 F 78 14 117/78 95 08/11/17 08:09 08/11/17 08:09 08/11/17 08:09 08/11/17 08:09 08/11/17 08:09 Results - Labs CBC & Chem 7: 08/08/17 05:24 08/08/17 05:24 Labs: Laboratory Last Values WBC 5.5 K/mm3 (4.5-11.0) 08/08/17 05:24 RBC 5.15 M/mm3 (3.65-5.03) H 08/08/17 05:24 Hgb 15.9 gm/dl (11.8-15.2) H 08/08/17 05:24 Hct 46.2 % (35.5-45.6) H 08/08/17 05:24 MCV 90 fl (84-94) 08/08/17 05:24 MCH 31 pg (28-32) 08/08/17 05:24 MCHC 34 % (32-34) 08/08/17 05:24 RDW 13.1 % (13.2-15.2) L 08/08/17 05:24 Plt Count 100 K/mm3 (140-440) L 08/08/17 05:24 Lymph % (Auto) 15.6 % (13.4-35.0) 08/07/17 11:00 [place] % (Auto) 9.2 % (0.0-7.3) H 08/07/17 11:00 Eos % (Auto) 0.6 % (0.0-4.3) 08/07/17 11:00 Baso % (Auto) 0.3 % (0.0-1.8) 08/07/17 11:00 Lymph # 1.6 K/mm3 (1.2-5.4) 08/07/17 11:00 [place] # 0.9 K/mm3 (0.0-0.8) H 08/07/17 11:00 Eos # 0.1 K/mm3 (0.0-0.4) 08/07/17 11:00 Baso # 0.0 K/mm3 (0.0-0.1) 08/07/17 11:00 Seg Neutrophils % 74.3 % (40.0-70.0) H 08/07/17 11:00 Seg Neutrophils # 7.4 K/mm3 (1.8-7.7) 08/07/17 11:00 PT 14.4 Sec. (12.2-14.9) 08/07/17 11:07 INR 1.07 (0.87-1.13) 08/07/17 11:07 APTT 30.2 Sec. (24.2-36.6) 08/07/17 11:07 Sodium 141 mmol/L (137-145) 08/08/17 05:24 Potassium 3.7 mmol/L (3.6-5.0) 08/08/17 05:24 Chloride 102.6 mmol/L (98-107) 08/08/17 05:24 Carbon Dioxide 28 mmol/L (22-30) 08/08/17 05:24 Anion Gap 14 mmol/L 08/08/17 05:24 BUN 6 mg/dL (9-20) L 08/08/17 05:24 Creatinine 0.5 mg/dL (0.8-1.5) L 08/08/17 05:24 Estimated GFR > 60 ml/min 08/08/17 05:24 BUN/Creatinine Ratio 12 % 08/08/17 05:24 Glucose 96 mg/dL (75-100) 08/08/17 05:24 Lactic Acid 2.30 mmol/L (0.7-2.0) H* 08/07/17 17:50 Calcium 8.5 mg/dL (8.4-10.2) 08/08/17 05:24 Magnesium 1.70 mg/dL (1.7-2.3) 08/07/17 11:07 Total Bilirubin 0.60 mg/dL (0.1-1.2) 08/08/17 05:24 Direct Bilirubin < 0.2 mg/dL (0-0.2) 08/07/17 11:07 AST 23 units/L (5-40) 08/08/17 05:24 ALT 15 units/L (7-56) 08/08/17 05:24 Alkaline Phosphatase 58 units/L (35-129) 08/08/17 05:24 Ammonia 22.0 umol/L (25-60) L 08/07/17 11:07 Total Creatine Kinase 414 units/L (55-170) H 08/07/17 11:07 CK-MB (CK-2) 20.2 ng/mL (0.0-4.0) H 08/07/17 11:07 CK-MB (CK-2) Rel Index 4.8 (0-4) H 08/07/17 11:07 Troponin T < 0.010 ng/mL (0.00-0.029) 08/07/17 11:07 NT-Pro-B Natriuret Pep 80.40 pg/mL (0-450) 08/07/17 11:07 Total Protein 6.6 g/dL (6.3-8.2) 08/08/17 05:24 Albumin 3.8 g/dL (3.9-5) L 08/08/17 05:24 Albumin/Globulin Ratio 1.4 % 08/08/17 05:24 Lipase 17 units/L (13-60) 08/07/17 11:07 Urine Color Yellow (Yellow) 08/07/17 Unknown Urine Turbidity Clear (Clear) 08/07/17 Unknown Urine pH 6.0 (5.0-7.0) 08/07/17 Unknown Ur Specific [place] 1.025 (1.003-1.030) 08/07/17 Unknown Urine Protein <15 mg/dl mg/dL (Negative) 08/07/17 Unknown Urine Glucose (UA) 50 mg/dL (Negative) 08/07/17 Unknown Urine Ketones Neg mg/dL (Negative) 08/07/17 Unknown Urine Blood Neg (Negative) 08/07/17 Unknown Urine Nitrite Neg (Negative) 08/07/17 Unknown Urine Bilirubin Neg (Negative) 08/07/17 Unknown Urine Urobilinogen 2.0 mg/dL (<2.0) 08/07/17 Unknown Ur Leukocyte Esterase Neg (Negative) 08/07/17 Unknown Urine WBC (Auto) 1.0 /HPF (0.0-6.0) 08/07/17 Unknown Urine RBC (Auto) 1.0 /HPF (0.0-6.0) 08/07/17 Unknown Hyaline Casts 1 /LPF 08/07/17 Unknown Urine Mucus 1+ /HPF 08/07/17 Unknown Urine Opiates Screen Presumptive negative 08/07/17 Unknown Urine Methadone Screen Presumptive negative 08/07/17 Unknown Ur Barbiturates Screen Presumptive negative 08/07/17 Unknown Ur Phencyclidine Scrn Presumptive negative 08/07/17 Unknown Ur Amphetamines Screen Presumptive negative 08/07/17 Unknown U Benzodiazepines Scrn Presumptive negative 08/07/17 Unknown Urine Cocaine Screen Presumptive negative 08/07/17 Unknown U Marijuana (THC) Screen Presumptive negative 08/07/17 Unknown Drugs of Abuse Note Disclamer 08/07/17 Unknown Plasma/Serum Alcohol < 0.01 gm% (0-0.07) 08/07/17 11:00
--- NOTE | 2017-08-11 14:26 | Progress Note ---
Subjective - Reason for Consult Consult date: 08/11/17 Reason for consult: follow up - Chief Complaint Chief complaint: "Something's not working." 26 year old AA male seen for psychiatric follow up on the medical floor. He was brought to the hospital after being found running naked in the street. A 1013 was signed by the ER provider for concerns he cannot care for himself. Per the record, he has a history of schizophrenia and last took geodon 2 months ago. Limited information was obtained from the patient. He is no longer in restraints today. He was able to state his name, specific location, and recent holiday and year. He mumbled mostly during the interview. He repeatedly said "I' m trying to figure something, something's not working... trying to make it work. " He did not confirm nor deny suicidal or homicidal ideation. He states he was hearing voices and then goes on to say, "it wasn't voices but people were actually talking about me on the bus." He states they were watching him. He thinks these symptoms went on for a few weeks but could not give an accurate timeline. Mental Status Exam - Vital signs Last Vital Signs Temp 98.2 F 08/11/17 08:09 Pulse 78 08/11/17 08:09 Resp 14 08/11/17 08:09 BP 117/78 08/11/17 08:09 Pulse Ox 95 08/11/17 08:09 - Exam Narrative exam: Orientation: place, person, year/month Affect: indifferent Mood: other (unable to obtain) Thought content: other (did not confirm nor deny SI/HI) Thought Process: Disorganized Perceptions: other (unk, mumbling to himself) Speech: minimal response Concentration: other (unable to obtain) Motor activity: retardation Level of consciousness: confused Memory: Recent Impaired Interaction: other (minimally cooperative) Assessment and Plan Impression:bizarre behavior. Acute encephalopathy schizophrenia by history consider primary psychosis or catatonia. He denies having anyone to call for collateral. It is unknown if he engages in high risk sexual behavior or illicit substance use which could not be identified with a standard drug screen on admission. Recommendation: Continue 1013 labs ordered to identify other causes of altered mental status: b12/folate, tsh, rpr, hiv. last ck was 414. - continue medical management to treat any non psychiatric conditions which may contribute to encephalopathy - Please attempt to place patient with 1:1 sitter to verbally redirect instead of using restraints if at all possible - Frequently reorient patient and involve her in their care (simple explanations of procedures, tests, medications). - Lights on and shades open during daytime hours. - Write date and goals of care in a visible place. - Try to avoid unnecessary interruptions to sleep during nighttime hours. - Obtain glasses, hearing aids from home if patient uses these at baseline. - Avoid medications that may exacerbate delirium (especially narcotics, benzodiazepines, barbiturates, ambien, lunesta, and medications with excessive anticholinergic properties) Continue haldol 5mg IM q6 hr prn and consider scheduled antipsychotic once labs reviewed.
[2017-08-11 17:43] LABS: HIV-1 Antigen p24 Non React (Non React); HIVR-1/2 Ab Non React (Non React)
[2017-08-12] MEDS: D5/0.45NS 1,000 ML IV SCH (05:47)
[2017-08-12 07:02] LABS: Hematocrit 45.9 % (35.5-45.6); Hemoglobin 15.6 gm/dl (11.8-15.2); Mean Corpuscular HGB Conc 34 % (32-34); Mean Corpuscular Hemoglobin 31 pg (28-32); Mean Corpuscular Volume 92 fl (84-94); Platelet Count 134 K/mm3 (140-440); Red Blood Count 5.02 M/mm3 (3.65-5.03); Red Cell Distribution Width 12.7 % (13.2-15.2); White Blood Count 13.1 K/mm3 (4.5-11.0)
[2017-08-12] MEDS: LOVENOX SUB-Q SCH (09:16)
--- NOTE | 2017-08-12 12:06 | Progress Note ---
Subjective - Reason for Consult Consult date: 08/12/17 Reason for consult: Psychiatry Follow-up - Chief Complaint Chief complaint: "Can I leave" 26 year old AA male seen for psychiatric follow up on the medical floor. He was brought to the hospital after being found running naked in the street. A 1013 was signed by the ER provider for concerns he cannot care for himself. Per the record, he has a history of schizophrenia. Today patient patient calm and cooperative with a tangential thought process. The patient is disorganized with his answers when asked questions. He stated that he feel like someone or something is always out to "harm him." The patient has a diaper on for no logical reason. Per the staff, patient uses the bathroom and complete his ADL' s. He denies SI/HI's and VH's. He stated that "people" are always in his ear "constantly" (AH's). Mental Status Exam - Vital signs Last Vital Signs Temp 98.3 F 08/12/17 07:13 Pulse 72 08/12/17 05:35 Resp 20 08/12/17 07:13 BP 130/88 08/12/17 07:13 Pulse Ox 100 08/12/17 05:35 - Exam Narrative exam: MSE: Appearance: calm Behavior: regular eye contact Speech: regular rate and tone Mood: "okay" Affect: flat Thought Process: tangential Thought Content: denies SI/HI's and AVH's, disorganized, paranoid Motor Activity: lying in bed Cognition: A/O x3 Insight: limited Judgment: limited Assessment and Plan Impression: Hx of Schizophrenia. Unspecified Psyhchosis. Today patient patient calm and cooperative with a tangential thought process. B12,cfolate, tsh, hiv, and rpr WNL. Last ck was 414. Recommendation: Continue 1013 with placement to inpatient psy services. Start Zyprexa 5 mg PO HS for psychosis. Discussed possible metabolic side effects of Zyprexa with patient.
--- NOTE | 2017-08-12 14:31 | Progress Note ---
Assessment and Plan Assessment and plan: Acute encephalopathy, confused, found running naked in street. Admitted to medical floor. Symptoms due to psychosis. He states he was on Geodon 2 months ago. Psych following. Cntinue [address] head unremarkable. Acute psychosis. Psych following. Continue 1:1 sitter. Lactic acidosis, may be due to him running. Sepsis ruled out. Blood cultures negative, no fever, no leukocytosis. Discontinued Zosyn and Vanco. DVT prophylaxis with Lovenox subcut. Full code status. Patient is Medically stable for discharge to Psych facility History Interval history: less confused, Still does not talk much, does not provide much history no fever no chest pain Hospitalist Physical - Physical exam Narrative exam: GEN APPEARANCE : Not in acute distress, HEENT: Normocephalic Atraumatic NECK : supple, no JVD LUNGS: clear to auscultation bilaterally, no rales, no wheeze HEART: S1 and S2 regular, no murmurs, rubs or gallop, ABD: Soft, no tenderness, no distension, normal bowel sounds EXT: No edema, no clubbing, no cyanosis NEURO: Awake,alert,oriented to person,and place, not to time., moves all extremities, only says few words - Constitutional Vitals: Temp Pulse Resp BP Pulse Ox 98.3 F 72 20 130/88 100 08/12/17 07:13 08/12/17 05:35 08/12/17 07:13 08/12/17 07:13 08/12/17 05:35 Results - Labs CBC & Chem 7: 08/12/17 06:11 08/08/17 05:24 Labs: Laboratory Last Values WBC 13.1 K/mm3 (4.5-11.0) H 08/12/17 06:11 RBC 5.02 M/mm3 (3.65-5.03) 08/12/17 06:11 Hgb 15.6 gm/dl (11.8-15.2) H 08/12/17 06:11 Hct 45.9 % (35.5-45.6) H 08/12/17 06:11 MCV 92 fl (84-94) 08/12/17 06:11 MCH 31 pg (28-32) 08/12/17 06:11 MCHC 34 % (32-34) 08/12/17 06:11 RDW 12.7 % (13.2-15.2) L 08/12/17 06:11 Plt Count 134 K/mm3 (140-440) L 08/12/17 06:11 Lymph % (Auto) 15.6 % (13.4-35.0) 08/07/17 11:00 [place] % (Auto) 9.2 % (0.0-7.3) H 08/07/17 11:00 Eos % (Auto) 0.6 % (0.0-4.3) 08/07/17 11:00 Baso % (Auto) 0.3 % (0.0-1.8) 08/07/17 11:00 Lymph # 1.6 K/mm3 (1.2-5.4) 08/07/17 11:00 [place] # 0.9 K/mm3 (0.0-0.8) H 08/07/17 11:00 Eos # 0.1 K/mm3 (0.0-0.4) 08/07/17 11:00 Baso # 0.0 K/mm3 (0.0-0.1) 08/07/17 11:00 Seg Neutrophils % 74.3 % (40.0-70.0) H 08/07/17 11:00 Seg Neutrophils # 7.4 K/mm3 (1.8-7.7) 08/07/17 11:00 PT 14.4 Sec. (12.2-14.9) 08/07/17 11:07 INR 1.07 (0.87-1.13) 08/07/17 11:07 APTT 30.2 Sec. (24.2-36.6) 08/07/17 11:07 Sodium 141 mmol/L (137-145) 08/08/17 05:24 Potassium 3.7 mmol/L (3.6-5.0) 08/08/17 05:24 Chloride 102.6 mmol/L (98-107) 08/08/17 05:24 Carbon Dioxide 28 mmol/L (22-30) 08/08/17 05:24 Anion Gap 14 mmol/L 08/08/17 05:24 BUN 6 mg/dL (9-20) L 08/08/17 05:24 Creatinine 0.5 mg/dL (0.8-1.5) L 08/08/17 05:24 Estimated GFR > 60 ml/min 08/08/17 05:24 BUN/Creatinine Ratio 12 % 08/08/17 05:24 Glucose 96 mg/dL (75-100) 08/08/17 05:24 Lactic Acid 2.30 mmol/L (0.7-2.0) H* 08/07/17 17:50 Calcium 8.5 mg/dL (8.4-10.2) 08/08/17 05:24 Magnesium 1.70 mg/dL (1.7-2.3) 08/07/17 11:07 Total Bilirubin 0.60 mg/dL (0.1-1.2) 08/08/17 05:24 Direct Bilirubin < 0.2 mg/dL (0-0.2) 08/07/17 11:07 AST 23 units/L (5-40) 08/08/17 05:24 ALT 15 units/L (7-56) 08/08/17 05:24 Alkaline Phosphatase 58 units/L (35-129) 08/08/17 05:24 Ammonia 22.0 umol/L (25-60) L 08/07/17 11:07 Total Creatine Kinase 414 units/L (55-170) H 08/07/17 11:07 CK-MB (CK-2) 20.2 ng/mL (0.0-4.0) H 08/07/17 11:07 CK-MB (CK-2) Rel Index 4.8 (0-4) H 08/07/17 11:07 Troponin T < 0.010 ng/mL (0.00-0.029) 08/07/17 11:07 NT-Pro-B Natriuret Pep 80.40 pg/mL (0-450) 08/07/17 11:07 Total Protein 6.6 g/dL (6.3-8.2) 08/08/17 05:24 Albumin 3.8 g/dL (3.9-5) L 08/08/17 05:24 Albumin/Globulin Ratio 1.4 % 08/08/17 05:24 Lipase 17 units/L (13-60) 08/07/17 11:07 Vitamin B12 444.0 pg/mL (211-911) 08/11/17 16:56 Folate 12.46 ng/mL (7.3-26.0) 08/11/17 16:56 TSH 1.870 mlU/mL (0.270-4.200) 08/11/17 16:56 Urine Color Yellow (Yellow) 08/07/17 Unknown Urine Turbidity Clear (Clear) 08/07/17 Unknown Urine pH 6.0 (5.0-7.0) 08/07/17 Unknown Ur Specific [place] 1.025 (1.003-1.030) 08/07/17 Unknown Urine Protein <15 mg/dl mg/dL (Negative) 08/07/17 Unknown Urine Glucose (UA) 50 mg/dL (Negative) 08/07/17 Unknown Urine Ketones Neg mg/dL (Negative) 08/07/17 Unknown Urine Blood Neg (Negative) 08/07/17 Unknown Urine Nitrite Neg (Negative) 08/07/17 Unknown Urine Bilirubin Neg (Negative) 08/07/17 Unknown Urine Urobilinogen 2.0 mg/dL (<2.0) 08/07/17 Unknown Ur Leukocyte Esterase Neg (Negative) 08/07/17 Unknown Urine WBC (Auto) 1.0 /HPF (0.0-6.0) 08/07/17 Unknown Urine RBC (Auto) 1.0 /HPF (0.0-6.0) 08/07/17 Unknown Hyaline Casts 1 /LPF 08/07/17 Unknown Urine Mucus 1+ /HPF 08/07/17 Unknown Urine Opiates Screen Presumptive negative 08/07/17 Unknown Urine Methadone Screen Presumptive negative 08/07/17 Unknown Ur Barbiturates Screen Presumptive negative 08/07/17 Unknown Ur Phencyclidine Scrn Presumptive negative 08/07/17 Unknown Ur Amphetamines Screen Presumptive negative 08/07/17 Unknown U Benzodiazepines Scrn Presumptive negative 08/07/17 Unknown Urine Cocaine Screen Presumptive negative 08/07/17 Unknown U Marijuana (THC) Screen Presumptive negative 08/07/17 Unknown Drugs of Abuse Note Disclamer 08/07/17 Unknown Plasma/Serum Alcohol < 0.01 gm% (0-0.07) 08/07/17 11:00 RPR Nonreactive (Nonreactive) 08/11/17 16:56 HIV 1&2 Antibody Rapid Non react (Non React) 08/11/17 16:56 HIV P24 Antigen Non react (Non React) 08/11/17 16:56
[2017-08-13 06:32] LABS: Hematocrit 41.5 % (35.5-45.6); Hemoglobin 14.6 gm/dl (11.8-15.2); Mean Corpuscular HGB Conc 35 % (32-34); Mean Corpuscular Hemoglobin 32 pg (28-32); Mean Corpuscular Volume 91 fl (84-94); Platelet Count 108 K/mm3 (140-440); Red Blood Count 4.56 M/mm3 (3.65-5.03); Red Cell Distribution Width 12.8 % (13.2-15.2); White Blood Count 8.3 K/mm3 (4.5-11.0)
--- NOTE | 2017-08-13 08:27 | Progress Note ---
Assessment and Plan Assessment and plan: Acute encephalopathy, confused, found running naked in street. Admitted to medical floor. Symptoms due to psychosis. He states he was on Geodon 2 months ago. Psych following. Continue [address] head unremarkable. Acute psychosis. Psych following. Continue 1:1 sitter. Lactic acidosis, may be due to him running. Sepsis ruled out. Blood cultures negative, no fever, no leukocytosis. Discontinued Zosyn and Vanco. DVT prophylaxis with Lovenox subcut. Full code status. Patient is Medically stable for discharge to Psych facility. Awaiting placement. History Interval history: Patient initally brought in because he was found walking naked in the street Still does not talk much, does not provide much history no fever no chest pain Hospitalist Physical - Physical exam Narrative exam: GEN APPEARANCE : Not in acute distress, HEENT: Normocephalic Atraumatic NECK : supple, no JVD LUNGS: clear to auscultation bilaterally, no rales, no wheeze HEART: S1 and S2 regular, no murmurs, rubs or gallop, ABD: Soft, no tenderness, no distension, normal bowel sounds EXT: No edema, no clubbing, no cyanosis NEURO: Awake,alert,oriented to person,and place, not to time., moves all extremities, only says few words - Constitutional Vitals: Temp Pulse Resp BP Pulse Ox 98.6 F 60 20 120/70 99 08/13/17 08:08 08/13/17 08:03 08/13/17 08:08 08/13/17 08:03 08/13/17 08:03 Results - Labs CBC & Chem 7: 08/13/17 06:05 08/08/17 05:24 Labs: Laboratory Last Values WBC 8.3 K/mm3 (4.5-11.0) 08/13/17 06:05 RBC 4.56 M/mm3 (3.65-5.03) 08/13/17 06:05 Hgb 14.6 gm/dl (11.8-15.2) 08/13/17 06:05 Hct 41.5 % (35.5-45.6) 08/13/17 06:05 MCV 91 fl (84-94) 08/13/17 06:05 MCH 32 pg (28-32) 08/13/17 06:05 MCHC 35 % (32-34) H 08/13/17 06:05 RDW 12.8 % (13.2-15.2) L 08/13/17 06:05 Plt Count 108 K/mm3 (140-440) L 08/13/17 06:05 Lymph % (Auto) 15.6 % (13.4-35.0) 08/07/17 11:00 [place] % (Auto) 9.2 % (0.0-7.3) H 08/07/17 11:00 Eos % (Auto) 0.6 % (0.0-4.3) 08/07/17 11:00 Baso % (Auto) 0.3 % (0.0-1.8) 08/07/17 11:00 Lymph # 1.6 K/mm3 (1.2-5.4) 08/07/17 11:00 [place] # 0.9 K/mm3 (0.0-0.8) H 08/07/17 11:00 Eos # 0.1 K/mm3 (0.0-0.4) 08/07/17 11:00 Baso # 0.0 K/mm3 (0.0-0.1) 08/07/17 11:00 Seg Neutrophils % 74.3 % (40.0-70.0) H 08/07/17 11:00 Seg Neutrophils # 7.4 K/mm3 (1.8-7.7) 08/07/17 11:00 PT 14.4 Sec. (12.2-14.9) 08/07/17 11:07 INR 1.07 (0.87-1.13) 08/07/17 11:07 APTT 30.2 Sec. (24.2-36.6) 08/07/17 11:07 Sodium 141 mmol/L (137-145) 08/08/17 05:24 Potassium 3.7 mmol/L (3.6-5.0) 08/08/17 05:24 Chloride 102.6 mmol/L (98-107) 08/08/17 05:24 Carbon Dioxide 28 mmol/L (22-30) 08/08/17 05:24 Anion Gap 14 mmol/L 08/08/17 05:24 BUN 6 mg/dL (9-20) L 08/08/17 05:24 Creatinine 0.5 mg/dL (0.8-1.5) L 08/08/17 05:24 Estimated GFR > 60 ml/min 08/08/17 05:24 BUN/Creatinine Ratio 12 % 08/08/17 05:24 Glucose 96 mg/dL (75-100) 08/08/17 05:24 Lactic Acid 2.30 mmol/L (0.7-2.0) H* 08/07/17 17:50 Calcium 8.5 mg/dL (8.4-10.2) 08/08/17 05:24 Magnesium 1.70 mg/dL (1.7-2.3) 08/07/17 11:07 Total Bilirubin 0.60 mg/dL (0.1-1.2) 08/08/17 05:24 Direct Bilirubin < 0.2 mg/dL (0-0.2) 08/07/17 11:07 AST 23 units/L (5-40) 08/08/17 05:24 ALT 15 units/L (7-56) 08/08/17 05:24 Alkaline Phosphatase 58 units/L (35-129) 08/08/17 05:24 Ammonia 22.0 umol/L (25-60) L 08/07/17 11:07 Total Creatine Kinase 414 units/L (55-170) H 08/07/17 11:07 CK-MB (CK-2) 20.2 ng/mL (0.0-4.0) H 08/07/17 11:07 CK-MB (CK-2) Rel Index 4.8 (0-4) H 08/07/17 11:07 Troponin T < 0.010 ng/mL (0.00-0.029) 08/07/17 11:07 NT-Pro-B Natriuret Pep 80.40 pg/mL (0-450) 08/07/17 11:07 Total Protein 6.6 g/dL (6.3-8.2) 08/08/17 05:24 Albumin 3.8 g/dL (3.9-5) L 08/08/17 05:24 Albumin/Globulin Ratio 1.4 % 08/08/17 05:24 Lipase 17 units/L (13-60) 08/07/17 11:07 Vitamin B12 444.0 pg/mL (211-911) 08/11/17 16:56 Folate 12.46 ng/mL (7.3-26.0) 08/11/17 16:56 TSH 1.870 mlU/mL (0.270-4.200) 08/11/17 16:56 Urine Color Yellow (Yellow) 08/07/17 Unknown Urine Turbidity Clear (Clear) 08/07/17 Unknown Urine pH 6.0 (5.0-7.0) 08/07/17 Unknown Ur Specific [place] 1.025 (1.003-1.030) 08/07/17 Unknown Urine Protein <15 mg/dl mg/dL (Negative) 08/07/17 Unknown Urine Glucose (UA) 50 mg/dL (Negative) 08/07/17 Unknown Urine Ketones Neg mg/dL (Negative) 08/07/17 Unknown Urine Blood Neg (Negative) 08/07/17 Unknown Urine Nitrite Neg (Negative) 08/07/17 Unknown Urine Bilirubin Neg (Negative) 08/07/17 Unknown Urine Urobilinogen 2.0 mg/dL (<2.0) 08/07/17 Unknown Ur Leukocyte Esterase Neg (Negative) 08/07/17 Unknown Urine WBC (Auto) 1.0 /HPF (0.0-6.0) 08/07/17 Unknown Urine RBC (Auto) 1.0 /HPF (0.0-6.0) 08/07/17 Unknown Hyaline Casts 1 /LPF 08/07/17 Unknown Urine Mucus 1+ /HPF 08/07/17 Unknown Urine Opiates Screen Presumptive negative 08/07/17 Unknown Urine Methadone Screen Presumptive negative 08/07/17 Unknown Ur Barbiturates Screen Presumptive negative 08/07/17 Unknown Ur Phencyclidine Scrn Presumptive negative 08/07/17 Unknown Ur Amphetamines Screen Presumptive negative 08/07/17 Unknown U Benzodiazepines Scrn Presumptive negative 08/07/17 Unknown Urine Cocaine Screen Presumptive negative 08/07/17 Unknown U Marijuana (THC) Screen Presumptive negative 08/07/17 Unknown Drugs of Abuse Note Disclamer 08/07/17 Unknown Plasma/Serum Alcohol < 0.01 gm% (0-0.07) 08/07/17 11:00 RPR Nonreactive (Nonreactive) 08/11/17 16:56 HIV 1&2 Antibody Rapid Non react (Non React) 08/11/17 16:56 HIV P24 Antigen Non react (Non React) 08/11/17 16:56
[2017-08-13] MEDS: LOVENOX SUB-Q SCH (09:18)
--- NOTE | 2017-08-13 11:15 | Progress Note ---
Subjective - Reason for Consult Consult date: 08/13/17 Reason for consult: Psychiatry Follow-up - Chief Complaint Chief complaint: "How are you" 26 year old AA male seen for psychiatric follow up on the medical floor. He was brought to the hospital after being found running naked in the street. A 1013 was signed by the ER provider for concerns he cannot care for himself. Per the record, he has a history of schizophrenia. Today patient is calm and cooperative during the assessment. Today patient is more organized with his thoughts and answers than yesterday. He was asked again about wearing a diaper, he stated, "I would like to have some underwear." He is able to state his , the current/past [place] President, and his location. He was able to recall 2/3 numbers (4,11,13) within 5 mins. He stated that he is homeless at this time. He denies SI/HI's and AVH's. He denies any side effects of his medication. Mental Status Exam - Vital signs Last Vital Signs Temp 98.6 F 08/13/17 08:08 Pulse 60 08/13/17 08:03 Resp 20 08/13/17 08:08 BP 120/70 08/13/17 08:03 Pulse Ox 99 08/13/17 08:03 - Exam Narrative exam: MSE: Appearance: calm, cooperative Behavior: regular eye contact Speech: regular rate and tone Mood: "okay" Affect: congruent to mood Thought Process: logical Thought Content: denies SI/HI's and AVH's Motor Activity: lying in bed Cognition: A/O x3 Insight: fair Judgment: fair Assessment and Plan Impression: Hx of Schizophrenia. Unspecified Psyhchosis. Today patient patient calm and cooperative during the assessment. B12, folate, tsh, hiv, and rpr WNL. Last ck was 414. Recommendation: Rescind 1013. Continue Zyprexa 5 mg PO HS for psychosis. Discussed possible metabolic side effects of Zyprexa with patient. Manager Building involvement, patient need appropriate placement he is homeless.
[2017-08-14] MEDS: LOVENOX SUB-Q SCH (09:16)
--- NOTE | 2017-08-14 10:02 | Progress Note ---
Assessment and Plan Assessment and plan: Acute encephalopathy, confused, found running naked in street. Admitted to medical floor. Symptoms due to psychosis. He states he was on Geodon 2 months ago. Psych following. Continue [address] head unremarkable. Acute psychosis. Psych following. Continue 1:1 sitter. Lactic acidosis, may be due to him running. Sepsis ruled out. Blood cultures negative, no fever, no leukocytosis. Discontinued Zosyn and Vanco. DVT prophylaxis with Lovenox subcut. Full code status. Patient is Medically stable for discharge to Psych facility. Awaiting placement. History Interval history: NO NEW ISSUES OVERNIGHT> Hospitalist Physical - Constitutional Vitals: Temp Pulse Resp BP Pulse Ox 97.4 F L 64 18 115/73 99 08/14/17 08:00 08/14/17 08:00 08/14/17 08:00 08/14/17 08:00 08/14/17 08:00 General appearance: Present: no acute distress, well-nourished - EENT Eyes: Present: PERRL, EOM intact ENT: hearing intact, clear oral mucosa, dentition normal - Neck Neck: Present: supple, normal ROM - Respiratory Respiratory effort: normal Respiratory: bilateral: CTA - Cardiovascular Rhythm: regular Heart Sounds: Present: S1 & S2. Absent: gallop, rub - Extremities Extremities: no ischemia, No edema, Full ROM - Abdominal General gastrointestinal: soft, non-tender, non-distended, normal bowel sounds - Integumentary Integumentary: Present: clear, warm, dry - Neurologic Neurologic: CNII-XII intact, moves all extremities Results - Labs CBC & Chem 7: 08/13/17 06:05 08/08/17 05:24 Labs: Laboratory Last Values WBC 8.3 K/mm3 (4.5-11.0) 08/13/17 06:05 RBC 4.56 M/mm3 (3.65-5.03) 08/13/17 06:05 Hgb 14.6 gm/dl (11.8-15.2) 08/13/17 06:05 Hct 41.5 % (35.5-45.6) 08/13/17 06:05 MCV 91 fl (84-94) 08/13/17 06:05 MCH 32 pg (28-32) 08/13/17 06:05 MCHC 35 % (32-34) H 08/13/17 06:05 RDW 12.8 % (13.2-15.2) L 08/13/17 06:05 Plt Count 108 K/mm3 (140-440) L 08/13/17 06:05 Lymph % (Auto) 15.6 % (13.4-35.0) 08/07/17 11:00 [place] % (Auto) 9.2 % (0.0-7.3) H 08/07/17 11:00 Eos % (Auto) 0.6 % (0.0-4.3) 08/07/17 11:00 Baso % (Auto) 0.3 % (0.0-1.8) 08/07/17 11:00 Lymph # 1.6 K/mm3 (1.2-5.4) 08/07/17 11:00 [place] # 0.9 K/mm3 (0.0-0.8) H 08/07/17 11:00 Eos # 0.1 K/mm3 (0.0-0.4) 08/07/17 11:00 Baso # 0.0 K/mm3 (0.0-0.1) 08/07/17 11:00 Seg Neutrophils % 74.3 % (40.0-70.0) H 08/07/17 11:00 Seg Neutrophils # 7.4 K/mm3 (1.8-7.7) 08/07/17 11:00 PT 14.4 Sec. (12.2-14.9) 08/07/17 11:07 INR 1.07 (0.87-1.13) 08/07/17 11:07 APTT 30.2 Sec. (24.2-36.6) 08/07/17 11:07 Sodium 141 mmol/L (137-145) 08/08/17 05:24 Potassium 3.7 mmol/L (3.6-5.0) 08/08/17 05:24 Chloride 102.6 mmol/L (98-107) 08/08/17 05:24 Carbon Dioxide 28 mmol/L (22-30) 08/08/17 05:24 Anion Gap 14 mmol/L 08/08/17 05:24 BUN 6 mg/dL (9-20) L 08/08/17 05:24 Creatinine 0.5 mg/dL (0.8-1.5) L 08/08/17 05:24 Estimated GFR > 60 ml/min 08/08/17 05:24 BUN/Creatinine Ratio 12 % 08/08/17 05:24 Glucose 96 mg/dL (75-100) 08/08/17 05:24 Lactic Acid 2.30 mmol/L (0.7-2.0) H* 08/07/17 17:50 Calcium 8.5 mg/dL (8.4-10.2) 08/08/17 05:24 Magnesium 1.70 mg/dL (1.7-2.3) 08/07/17 11:07 Total Bilirubin 0.60 mg/dL (0.1-1.2) 08/08/17 05:24 Direct Bilirubin < 0.2 mg/dL (0-0.2) 08/07/17 11:07 AST 23 units/L (5-40) 08/08/17 05:24 ALT 15 units/L (7-56) 08/08/17 05:24 Alkaline Phosphatase 58 units/L (35-129) 08/08/17 05:24 Ammonia 22.0 umol/L (25-60) L 08/07/17 11:07 Total Creatine Kinase 414 units/L (55-170) H 08/07/17 11:07 CK-MB (CK-2) 20.2 ng/mL (0.0-4.0) H 08/07/17 11:07 CK-MB (CK-2) Rel Index 4.8 (0-4) H 08/07/17 11:07 Troponin T < 0.010 ng/mL (0.00-0.029) 08/07/17 11:07 NT-Pro-B Natriuret Pep 80.40 pg/mL (0-450) 08/07/17 11:07 Total Protein 6.6 g/dL (6.3-8.2) 08/08/17 05:24 Albumin 3.8 g/dL (3.9-5) L 08/08/17 05:24 Albumin/Globulin Ratio 1.4 % 08/08/17 05:24 Lipase 17 units/L (13-60) 08/07/17 11:07 Vitamin B12 444.0 pg/mL (211-911) 08/11/17 16:56 Folate 12.46 ng/mL (7.3-26.0) 08/11/17 16:56 TSH 1.870 mlU/mL (0.270-4.200) 08/11/17 16:56 Urine Color Yellow (Yellow) 08/07/17 Unknown Urine Turbidity Clear (Clear) 08/07/17 Unknown Urine pH 6.0 (5.0-7.0) 08/07/17 Unknown Ur Specific [place] 1.025 (1.003-1.030) 08/07/17 Unknown Urine Protein <15 mg/dl mg/dL (Negative) 08/07/17 Unknown Urine Glucose (UA) 50 mg/dL (Negative) 08/07/17 Unknown Urine Ketones Neg mg/dL (Negative) 08/07/17 Unknown Urine Blood Neg (Negative) 08/07/17 Unknown Urine Nitrite Neg (Negative) 08/07/17 Unknown Urine Bilirubin Neg (Negative) 08/07/17 Unknown Urine Urobilinogen 2.0 mg/dL (<2.0) 08/07/17 Unknown Ur Leukocyte Esterase Neg (Negative) 08/07/17 Unknown Urine WBC (Auto) 1.0 /HPF (0.0-6.0) 08/07/17 Unknown Urine RBC (Auto) 1.0 /HPF (0.0-6.0) 08/07/17 Unknown Hyaline Casts 1 /LPF 08/07/17 Unknown Urine Mucus 1+ /HPF 08/07/17 Unknown Urine Opiates Screen Presumptive negative 08/07/17 Unknown Urine Methadone Screen Presumptive negative 08/07/17 Unknown Ur Barbiturates Screen Presumptive negative 08/07/17 Unknown Ur Phencyclidine Scrn Presumptive negative 08/07/17 Unknown Ur Amphetamines Screen Presumptive negative 08/07/17 Unknown U Benzodiazepines Scrn Presumptive negative 08/07/17 Unknown Urine Cocaine Screen Presumptive negative 08/07/17 Unknown U Marijuana (THC) Screen Presumptive negative 08/07/17 Unknown Drugs of Abuse Note Disclamer 08/07/17 Unknown Plasma/Serum Alcohol < 0.01 gm% (0-0.07) 08/07/17 11:00 RPR Nonreactive (Nonreactive) 08/11/17 16:56 HIV 1&2 Antibody Rapid Non react (Non React) 08/11/17 16:56 HIV P24 Antigen Non react (Non React) 08/11/17 16:56
[2017-08-14 16:38] VITALS: BP 116/70
--- NOTE | 2017-09-30 10:45 | Discharge Summary ---
Providers - Providers Date of Admission: 08/07/17 12:40 Date of discharge: 08/15/17 Attending physician: LEYLA HERNANDEZ 08/07/17 11:54 Consult to Physician [CONS] Urgent Consulting Provider: JOANIE NINO Reason For Exam: AMS Notified:: yes 08/07/17 12:44 Consult to Mental Health [CONS] Routine Reason For Exam: acute psychosis Place consult to:: Psych Notified:: Phone number called:: [phone] Was contact made?: Yes If yes, spoke with:: ericka Time called:: 14:27 Comment:: Re-sent to [facility] at 1118 hrs 08/09/2017 Primary care physician: ANGELI HASSAN MD Hospitalization Condition: Stable Hospital course: 26 year old AA male seen for psychiatric follow up on the medical floor. He was brought to the hospital after being found running naked in the street. A 1013 was signed by the ER provider for concerns he cannot care for himself. Per the record, he has a history of schizophrenia. The patient was seen by psychiatry and diagnosed with unspecified psychosis. The patient remained and noted to be calm with the psychiatrist and a [address] scan of the head was negative. Recommendations were to continue Zyprexa and potential appropriate placement for he is homeless. Disposition: DC-01 TO HOME OR SELFCARE Time spent for discharge: 32 Core Measure Documentation - Palliative Care Palliative Care/ Comfort Measures: Not Applicable - Core Measures Any of the following diagnoses?: none Exam - Constitutional Vitals: Temp Pulse Resp BP Pulse Ox 98.6 F 65 20 116/70 98 08/14/17 16:36 08/14/17 16:36 08/14/17 16:36 08/14/17 16:36 08/14/17 16:36 Plan Follow up with: ANGELI HASSAN MD [Primary Care Provider] - 7 Days
== END 2017-08-14 19:20 | disposition home or self-care (01) | DRG 71 ==
LOC: EEVIPCON 10:44 → ED 10:44 → EDBD 12:40 → 3A 12:40
PROVIDERS: ADMIT Internal Medicine; ATTEND Hospitalist
DX: G93.40 Encephalopathy, unspecified (principal); F23 Brief psychotic disorder; M62.82 Rhabdomyolysis; E87.2 Acidosis; F17.200 Nicotine dependence, unspecified, uncomplicated
CPT/HCPCS: 36415; 70450; 71010; 80048; 80053; 80074; 80307; 80320; 81001; 82140; 82550; 82553; 82607; 82747; 83690; 83735; 83880; 84443; 84484; 85025; 85027; 85610; 85730; 86592; 87040; 87086; 87806; 93005; 93010; 96374; G0480; J0696; J1630; J1650; J2543; J3370; J7030; J7121